=== PATIENT | male | born 1980 ===

== ENCOUNTER → 2019-05-07 11:23 | Outpatient (CLI) | payer OTHER, SELFPAY ==
[2019-05-07 12:11] LABS: Hematocrit 41.6 % (41-53); Hemoglobin 14.1 g/dL (13.5-17.5); Mean Corpuscular HGB Conc 33.8 % (30-36); Mean Corpuscular Hemoglobin 28.2 PG (26-34); Mean Corpuscular Volume 83.6 fL (80-100); Platelet Count 238 X10^3/uL (150-400); Red Blood Cell Count 4.98 X10^6/uL (4.5-5.9); Red Cell Distribution Width 12.6 % (11.6-14.8); White Blood Cell Count 4.5 X10^3/uL (4.5-11.0)
[2019-05-07 12:26] LABS: Alanine Aminotransferase 15 IU/L (<50); Albumin 4.5 g/dL (3.5-5.0); Albumin Globulin Ratio 1.4 (1.0-2.8); Alkaline Phosphatase 54 U/L (38-126); Aspartate Aminotransferase 24 IU/L (17-59); BUN Creatinine Ratio 17.3 (6-22); Bilirubin Total 0.5 mg/dL (0.2-1.3); Blood Urea Nitrogen 19 mg/dL (9-20); Calcium 9.2 mg/dL (8.4-10.2); Carbon Dioxide 30 mmol/L (22-32); Chloride 104 mmol/L (98-107); Cholesterol 201 mg/dL (140-199); Estimated Glomerular Filt Rate > 60.0 mL/min (>60); Globulin 3.2 g/dL (1.7-4.1); Glucose 94 mg/dL (70-100); HDL Cholesterol 33 mg/dL (40-60); HEMOLYSIS < 15 (0-50); LDL Cholesterol Calculated 143 mg/dL (<100); Potassium 3.8 mmol/L (3.4-5.1); Sodium 141 mmol/L (137-145); Total Protein 7.7 g/dL (6.3-8.2); Triglycerides 124 mg/dL (35-150)
== END ==
PROVIDERS: PCP Nurse Practitioner Family; Referring Provider Nurse Practitioner Family; Visit Provider Nurse Practitioner Family
DX: Z00.00 Encounter for general adult medical examination without abnormal findings (principal); Z13.6 Encounter for screening for cardiovascular disorders
CPT/HCPCS: 36415; 80053; 80061; 85027

== ENCOUNTER → 2019-08-04 10:42 | Outpatient (CLI) | payer OTHER, SELFPAY ==
[2019-08-04 11:04] LABS: Add Manual Diff / Slide Review NO; Basophils Absolute Auto 0 /uL (0-100); Basophils Percent Auto 0.4 % (0-2); Eosinophils Absolute Auto 200 /uL (0-450); Eosinophils Percent Auto 2.5 % (2-4); Hematocrit 41.1 % (41-53); Hemoglobin 14.1 g/dL (13.5-17.5); Lymphocytes Absolute Auto 1400 /uL (1100-4500); Lymphocytes Percent Auto 14.2 % (25-40); Mean Corpuscular HGB Conc 34.4 % (30-36); Mean Corpuscular Hemoglobin 28.7 PG (26-34); Mean Corpuscular Volume 83.5 fL (80-100); Monocytes Absolute Auto 1000 /uL (0-900); Monocytes Percent Auto 10.2 % (3-14); Neutrophils Absolute Auto 7100 /uL (1500-7000); Neutrophils Percent Auto 72.7 % (50-75); Platelet Count 256 X10^3/uL (150-400); Red Blood Cell Count 4.92 X10^6/uL (4.5-5.9); Red Cell Distribution Width 12.1 % (11.6-14.8); White Blood Cell Count 9.8 X10^3/uL (4.5-11.0)
[2019-08-04 11:15] LABS: Alanine Aminotransferase 47 IU/L (<50); Albumin 4.6 g/dL (3.5-5.0); Albumin Globulin Ratio 1.2 (1.0-2.8); Alkaline Phosphatase 79 U/L (38-126); Aspartate Aminotransferase 39 IU/L (17-59); BUN Creatinine Ratio 11.5 (6-22); Bilirubin Total 0.6 mg/dL (0.2-1.3); Blood Urea Nitrogen 13 mg/dL (9-20); Calcium 9.7 mg/dL (8.4-10.2); Carbon Dioxide 27 mmol/L (22-32); Chloride 100 mmol/L (98-107); Estimated Glomerular Filt Rate > 60.0 mL/min (>60); Globulin 3.8 g/dL (1.7-4.1); Glucose 108 mg/dL (70-100); HEMOLYSIS < 15 (0-50); Potassium 4.6 mmol/L (3.4-5.1); Sodium 138 mmol/L (137-145); Total Protein 8.4 g/dL (6.3-8.2)
[2019-08-08 16:14] LABS: COVID19 Sendout Not Detected (Not Detected)
== END ==
PROVIDERS: PCP Nurse Practitioner Family; Visit Provider Physician Assistant
DX: R11.0 Nausea (principal); R50.9 Fever, unspecified; R51 Headache
CPT/HCPCS: 36415; 80053; 85025; 87635

== ENCOUNTER → 2023-01-24 08:16 | Outpatient (CLI) | payer OTHER, SELFPAY ==
[2023-01-24 09:11] LABS: Add Manual Diff / Slide Review NO; Basophils Absolute Auto 0 /uL (0-100); Basophils Percent Auto 0.8 % (0-2); Eosinophils Absolute Auto 600 /uL (0-450); Eosinophils Percent Auto 12.3 % (2-4); Hematocrit 40.3 % (41-53); Hemoglobin 13.7 g/dL (13.5-17.5); Lymphocytes Absolute Auto 1700 /uL (1100-4500); Mean Corpuscular Volume 82.2 fL (80-100); Monocytes Absolute Auto 300 /uL (0-900); Monocytes Percent Auto 7.7 % (3-14); Neutrophils Absolute Auto 1900 /uL (1500-7000); Neutrophils Percent Auto 42.2 % (50-75); Platelet Count 257 X10^3/uL (150-400); Red Cell Distribution Width 12.3 % (11.6-14.8); White Blood Cell Count 4.5 X10^3/uL (4.5-11.0)
[2023-01-24 09:27] LABS: Hemoglobin A1C% w Est Avg Glu 5.8 % (4.0-6.0)
[2023-01-24 09:32] LABS: Alanine Aminotransferase 16 IU/L (<50); Albumin 4.2 g/dL (3.5-5.0); Albumin Globulin Ratio 1.6 (1.0-2.8); Alkaline Phosphatase 69 U/L (38-126); Aspartate Aminotransferase 23 IU/L (17-59); BUN Creatinine Ratio 17.4 (6-22); Bilirubin Total 0.4 mg/dL (0.2-1.3); Blood Urea Nitrogen 19 mg/dL (9-20); Calcium 9.8 mg/dL (8.4-10.2); Carbon Dioxide 28 mmol/L (22-32); Chloride 103 mmol/L (98-107); Cholesterol 205 mg/dL (140-199); Estimated Glomerular Filt Rate > 60 mL/min (>60); Globulin 2.7 g/dL (1.7-4.1); Glucose 99 mg/dL (70-100); HDL Cholesterol 36 mg/dL (40-60); HEMOLYSIS < 15 (0-50); LDL Cholesterol Calculated 154 mg/dL (<100); Potassium 4.3 mmol/L (3.4-5.1); Sodium 139 mmol/L (137-145); Total Protein 6.9 g/dL (6.3-8.2); Triglycerides 77 mg/dL (35-150)
[2023-01-24 10:01] LABS: Prostate Specific Antigen 0.821 ng/mL (0.10-4.00)
== END ==
PROVIDERS: PCP Family Medicine; Referring Provider Family Medicine; Visit Provider Family Medicine
DX: D18.03 Hemangioma of intra-abdominal structures (principal)
CPT/HCPCS: 36415; 80053; 80061; 83036; 84153; 85025

== ENCOUNTER → 2023-02-15 11:11 | Outpatient (CLI) | payer OTHER, SELFPAY ==
[2023-02-20 06:08] LABS: QuantiFERON Mitogen Value >10.00 IU/mL (.); QuantiFERON Nil Value 0.06 IU/mL (.); QuantiFERON TB Gold Plus Negative (Negative); QuantiFERON TB1 Ag Value 0.06 IU/mL (.); QuantiFERON TB2 Ag Value 0.06 IU/mL (.)
== END ==
PROVIDERS: PCP Family Medicine; Referring Provider Family Medicine; Visit Provider Family Medicine
DX: Z11.1 Encounter for screening for respiratory tuberculosis (principal)
CPT/HCPCS: 36415; 86480